=== PATIENT | male | born 1990 | race Caucasian/White ===

== ENCOUNTER 2018-01-25 23:01 | Emergency (ER) | payer OTHER, MEDICAID ==
[~2018-01-25] VITALS: Ht 180.3 cm; Wt 91.0 kg
[2018-01-26 05:05] VITALS: BP 131/65
== END 2018-01-26 06:16 | disposition home or self-care (01) ==
LOC: ER 23:01
DX: N43.3 Hydrocele, unspecified (principal); N45.1 Epididymitis
CPT/HCPCS: 76870; 93976; 99284